=== PATIENT | female | born 1960 | race African-American/Black ===

== ENCOUNTER 2017-08-16 16:39 | Emergency (ER) | payer OTHER ==
[~2017-08-16] VITALS: Ht 167.6 cm; Wt 77.1 kg
[2017-08-16] MEDS ORDERED: AMLODIPINE BESYL5 MG ORAL (16:57)
[2017-08-16] MEDS ORDERED: GABAPENTIN300 MG ORAL (16:57)
[2017-08-16] MEDS ORDERED: VITAMIN D400 INTLU ORAL (16:57)
[2017-08-16] MEDS ORDERED: LANTUS SOL100 UNIT/1 SUBQ (16:57)
[2017-08-16] MEDS ORDERED: JANUVIA25 MG ORAL (16:57)
[2017-08-16] MEDS ORDERED: VALIUM10 MG ORAL (16:57)
[2017-08-16] MEDS ORDERED: PLAVIX75 MG ORAL (16:57)
[2017-08-16] MEDS ORDERED: SYMLIN600 MCG/1 SUBQ (16:57)
[2017-08-16] MEDS ORDERED: PRAVACHOL20 MG ORAL (16:57)
[2017-08-16] MEDS ORDERED: EC-NAPROSYN500 MG PO (16:57)
[2017-08-16] MEDS ORDERED: TRAMADOL HCL50 MG ORAL (16:57)
[2017-08-16] MEDS ORDERED: LISINOPRIL10 MG ORAL (16:57)
[2017-08-16] MEDS ORDERED: XANAX2 MG ORAL (16:57)
[2017-08-16] MEDS ORDERED: LIDOCAINE700 M1 TP (17:43)
[2017-08-16] MEDS ORDERED: TYLENOL EXTRA500 MG ORAL (17:43)
--- NOTE | 2017-08-16 17:43 | Emergency Room Report ---
History of Present Illness General Chief Complaint: Medication Refill Source: Patient Present Illness HPI 57 yo female patient presents to ER requesting refill of pain medication. Reports takes Nye-10. Patient reports chronic back pain; walks with cane. Reports physician no longer accepting her insurance. Reports filled prescription for less than total amount amount of Nye because pharmacy did not have enough for total amount of prescription; states she tried to fill the remaining amount of pills from pharmacy at a later date but was told that rest of prescription was voided because it was already partially filled. Reports physician she had previously been seeing but would not longer see due to insurance change told her to come to ER to get prescription filled. Denies fever, chest pain, SOB. Allergies: Coded Allergies: No Known Allergies (Unverified , 08/16/17) Patient History Past Medical History: see triage record Reviewed Nursing Documentation: PMH: Agreed, PSxH: Agreed Nursing Documentation-PMH Hx Hypertension: Yes Hx Diabetes: Yes Review of Systems All Other Systems: negative except mentioned in HPI Physical Exam Vital Signs Date Time Temp Pulse Resp B/P (MAP) Pulse Ox O2 Delivery O2 Flow Rate FiO2 08/16/17 16:49 98.1 102 18 101/64 98 Room Air 98.1 Sp02 EP Interpretation: reviewed, normal General Appearance: well appearing, no apparent distress, alert, GCS 15, non- toxic Head: normocephalic, atraumatic Eyes: bilateral eye normal inspection, bilateral eye PERRL ENT: hearing grossly normal, normal pharynx, no angioedema, normal voice, uvula midline, moist mucus membranes Neck: full range of motion Respiratory: lungs clear, normal breath sounds, no rhonchi, no respiratory distress, no accessory muscle use, no wheezing, speaking full sentences Cardiovascular #1: regular rate, rhythm, no edema Gastrointestinal: non tender, soft, no mass, non-distended, no guarding, no rebound Genitourinary: no CVA tenderness Musculoskeletal: back normal, digits/nails normal, gait/station normal, normal range of motion, non-tender Neurologic: alert, oriented x3, responsive, motor strength/tone normal, sensory intact Psychiatric: mood/affect normal Skin: no rash Lymphatic: no adenopathy Medical Decision Making PA Attestation Dr. Rodriguez is my supervising Physician whom patient management has been discussed with. Diagnostic Impression: Primary Impression: Encounter for medication refill Additional Impressions: Cough Chronic back pain ER Course Pt. presents to the ED requesting pain meds prescription refill. Multiple differentials considered. Vital signs: are WNL, pt. is afebrile ER COURSE: Inform patient will not provide her with Nye prescription refill. Inform patient that will not provide her with prescription for Nye based off instructions from provider that is no longer her main provider. Patient begins complaining of cough symptoms. Requesting Codeine cough syrup. Patient has not coughed during stay in ER. Patient lungs clear to auscultation. Patient begins trying to negotiate number of pills that I can write a prescription for her; says "How about 30? How about 20?" Informed patient that she will not be receiving prescription for opioid medication. Needs to come from primary care provider. Patient states she receives injections into back for pain; inform patient that we do not provide those injections in the ER for pain. Informed patient will provide her with Tylenol and Lidocaine patches for pain. Patient reports that will do nothing for her pain and wants stronger pain medication. Inform patient to contact previous provider to discuss filling prescription for patient that had previously been written, will not write prescription refill for patient that this time. Patient stable for discharge to home. DISCHARGE: Rx provided for Tylenol Rx provided for Lidocaine patches At this time pt is stable for d/c to home. Patient is resting comfortably, in no acute distress, nontoxic appearing, talking without difficulty. Patient to take medications as instructed Will provide with patient care instructions and any necessary prescriptions. Care plan and follow-up instructions provided. Patient instructed to follow-up with primary care provider in 3 - 5 days. Patient questions asked and answered. Patient reports understanding and agreement to treatment plan. ER precautions given. Patient instructed to return to ER immediately for any new or worsening of symptoms including but not limited to increasing SOB, persistent fever. Last Vital Signs Date Time Temp Pulse Resp B/P (MAP) Pulse Ox O2 Delivery O2 Flow Rate FiO2 08/16/17 16:49 98.1 102 18 101/64 98 Room Air 98.1 Disposition: HOME, SELF-CARE Condition: Stable Scripts Lidocaine (Lidocaine) 1 Each Adh..patch 700 MG TP DAILY for 10 Days, #10 PATCH Prov: Lonnie Delaney P.A. 08/16/17 Acetaminophen* (TYLENOL EXTRA STRENGTH*) 500 Mg Tablet 500 MG ORAL Q8H Y for Prn Headache/Temp > 101, #30 TAB 0 Refills Prov: Lonnie Delaney 08/16/17 Patient Instructions: Chronic Back Pain, Cough, Adult, [id number], Medicine Refill at the Emergency Department Additional Instructions: Followup with primary care provider in 3 -5 days. ER does not refill opiate medications. F/u with primary care provider. Take medications as directed. Patient questions asked and answered. ER precautions given, patient instructed to return to ER immediately for any new or worsening of symptoms including but not limited to chest pain, SOB. Lonnie Delaney Aug 16, 2017 17:43
[2017-08-16 19:10] VITALS: BP 101/64
== END 2017-08-16 19:00 | disposition home or self-care (01) ==
LOC: EMR 17:30
DX: Z76.0 Encounter for issue of repeat prescription (principal); R05 Cough; G89.29 Other chronic pain; M54.9 Dorsalgia, unspecified; I10 Essential (primary) hypertension; E11.9 Type 2 diabetes mellitus without complications
CPT/HCPCS: 99284